=== PATIENT | male | born 1970 | race Hispanic/Latino ===

== ENCOUNTER 2022-01-19 09:04 | Emergency (ER) | payer OTHER ==
[~2022-01-19] VITALS: Ht 180.3 cm; Wt 89.8 kg
[2022-01-19 09:06] VITALS: BP 124/85
[2022-01-19 10:14] LABS: BASOPHILS % (AUTO) 0.2 % (0.0-5.0); EOSINOPHILS % (AUTO) 1.6 % (0.0-8.0); LYMPHOCYTES % (AUTO) 41.3 % (21.0-51.0); MEAN CORPUSCULAR HEMOGLOBIN 29.8 pg (27.0-33.0); MEAN CORPUSCULAR HGB CONC 34.7 g/dL (32.0-36.0); MEAN CORPUSCULAR VOLUME 85.9 fL (79-99); MONOCYTES % (AUTO) 10.6 % (3.0-13.0); PLATELET COUNT (AUTO) 181 K/uL (130-400); RED BLOOD CELL COUNT(AUTO) 5.24 MIL/uL (4.50-6.20); RED CELL DISTRIBUTION WIDTH 12.7 % (11.0-15.5); WHITE BLOOD COUNT (AUTO) 6.1 K/uL (4.8-10.8)
[2022-01-19 10:27] LABS: POTASSIUM 3.8 mmol/L (3.5-5.1)
[2022-01-19 10:31] LABS: ALBUMIN 3.8 g/dL (3.5-5.0); TOTAL PROTEIN, SERUM 7.7 g/dL (6.0-8.3)
[2022-01-19] MEDS ORDERED: TETANUS/DIPHTHERIA TOXOID [ADULT] 0.5 ML VIAL IM SCH (11:30)
== END 2022-01-19 11:57 | disposition home or self-care (01) ==
LOC: EDH 09:04
DX: T63.2X1A Toxic effect of venom of scorpion, accidental (unintentional), initial encounter (principal); Z90.49 Acquired absence of other specified parts of digestive tract; Y92.89 Other specified places as the place of occurrence of the external cause
CPT/HCPCS: 36415; 80053; 85025; 90471; 90714

== ENCOUNTER 2022-11-20 11:58 | Observation (INO) | payer OTHER ==
[~2022-11-20] VITALS: Ht 180.3 cm; Wt 88.9 kg
[2022-11-20 13:22] LABS: HEMATOCRIT 44.8 % (42-54); MEAN CORPUSCULAR HEMOGLOBIN 29.7 pg (27.0-33.0); MEAN CORPUSCULAR HGB CONC 33.9 g/dL (32.0-36.0); MEAN CORPUSCULAR VOLUME 87.7 fL (79-99); RED BLOOD CELL COUNT(AUTO) 5.11 MIL/uL (4.50-6.20); RED CELL DISTRIBUTION WIDTH 12.9 % (11.0-15.5); WHITE BLOOD COUNT (AUTO) 10.1 K/uL (4.8-10.8)
[2022-11-20 13:32] LABS: CREATININE 1.1 mg/dL (0.5-1.5); POTASSIUM 4.3 mmol/L (3.5-5.1)
[2022-11-20 13:34] LABS: APPEARANCE,URINE CLOUDY (CLEAR); BILIRUBIN,URINE NEGATIVE (NEGATIVE); COLOR,URINE YELLOW (YELLOW); GLUCOSE, URINE (UA) 150 mg/dL (NEGATIVE); KETONES,URINE NEGATIVE (NEGATIVE); LEUKOCYTE ESTERASE ,URINE NEGATIVE Leu/uL (NEGATIVE); NITRATE,URINE NEGATIVE (NEGATIVE); OCCULT BLOOD,URINE NEGATIVE (NEGATIVE); PH,URINE 7.5 (5.0-8.0); PROTEIN,URINE 10 mg/dL (NEGATIVE)
[2022-11-20 13:36] LABS: ALBUMIN 3.6 g/dL (3.5-5.0); TOTAL PROTEIN, SERUM 8.1 g/dL (6.0-8.3)
[2022-11-20 13:38] LABS: BACTERIA,URINE RARE /HPF (None Seen); MUCUS,URINE RARE LPF (None Seen); RBC,URINE 0-1 /HPF (0-1); WBC,URINE 0-1 /HPF (0-1)
[2022-11-20] MEDS ORDERED: ACETAMINOPHEN 500 MG TABLET PO ONE (15:00)
[2022-11-20 15:30] VITALS: TEMP 99
[2022-11-20] MEDS ORDERED: IOHEXOL-350 75 ML VIAL IV ONE (17:00)
[2022-11-20] MEDS ORDERED: POTASSIUM CHLORIDE 20MEQ/100ML 100 ML IV PRN (18:30)
[2022-11-20] MEDS ORDERED: HYDROMORPHONE 1 MG INJ IV PRN (18:30)
[2022-11-20] MEDS ORDERED: KCL 20 MEQ ERTAB PO PRN (18:30)
[2022-11-20] MEDS ORDERED: POTASSIUM CHLORIDE 10% ELIXIR 20 MEQ/15 ML UDCUP PO PRN (18:30)
[2022-11-20] MEDS ORDERED: ONDANSETRON 4MG INJ IV PRN (18:30)
[2022-11-20] MEDS ORDERED: ACETAMINOPHEN 325 MG TAB PO PRN ×2 (18:30)
[2022-11-20] MEDS ORDERED: MAGNESIUM 2GM PREMIX 50ML 50 ML IV PRN (18:30)
[2022-11-20] MEDS ORDERED: HYDROCODONE/ACETAMINOPHEN 5/325 MG TAB PO PRN (18:30)
[2022-11-20] MEDS ORDERED: LACTATED RINGERS 1000ML 1,000 ML IV SCH (18:30)
[2022-11-20] MEDS ORDERED: FAMOTIDINE 20MG TAB PO SCH (21:00)
[2022-11-20 21:15] VITALS: BP 139/78; PULSE 82; RESP 17; O2SAT 100
[2022-11-21] MEDS ORDERED: ENOXAPARIN SODIUM 40 MG/0.4 ML SYRINGE SQ SCH (09:00)
== END 2022-11-20 21:15 | disposition home or self-care (01) ==
LOC: EDH 11:58 → EDHIP 18:17
PROVIDERS: ADMIT Internal Medicine; ATTEND Internal Medicine
DX: R50.9 Fever, unspecified (principal); Z20.822 Contact with and (suspected) exposure to COVID-19; R51.9 Headache, unspecified; M79.10 Myalgia, unspecified site; Z90.49 Acquired absence of other specified parts of digestive tract; Z51.5 Encounter for palliative care
CPT/HCPCS: 96360; 96361; 99285; 80053; 85027; 87040 ×2; 87804 ×2; 83605; 81001; 36415; 87635; 71045; 74177; G0378 ×3; C9803; Q9967

== ENCOUNTER 2022-11-21 15:12 | Inpatient (IN) | payer OTHER ==
[~2022-11-21] VITALS: Ht 180.3 cm; Wt 91.9 kg
[2022-11-21 15:42] LABS: APPEARANCE,URINE CLEAR (CLEAR); BILIRUBIN,URINE 0.5 mg/dL (NEGATIVE); COLOR,URINE YELLOW (YELLOW); GLUCOSE, URINE (UA) 30 mg/dL (NEGATIVE); KETONES,URINE NEGATIVE (NEGATIVE); LEUKOCYTE ESTERASE ,URINE 25 Leu/uL (NEGATIVE); NITRATE,URINE NEGATIVE (NEGATIVE); OCCULT BLOOD,URINE NEGATIVE (NEGATIVE); PROTEIN,URINE 50 mg/dL (NEGATIVE)
[2022-11-21 15:44] LABS: BACTERIA,URINE FEW /HPF (None Seen); MUCUS,URINE MOD LPF (None Seen); RBC,URINE 0-1 /HPF (0-1); SQUAMOUS EPITHELIAL CELL,UR RARE /HPF (0-2)
[2022-11-21] MEDS ORDERED: CEFTRIAXONE 1G VIAL IVPB ONE (16:30)
[2022-11-21] MEDS ORDERED: KETOROLAC 15MG/ML VIAL (15MG/ML) IV ONE (16:30)
[2022-11-21] MEDS ORDERED: 0.9%NACL 1000ML 1,000 ML IV ONE (16:30)
[2022-11-21 17:02] LABS: BASOPHILS % (AUTO) 0.2 % (0.0-5.0); EOSINOPHILS % (AUTO) 0.3 % (0.0-8.0); HEMATOCRIT 42.2 % (42-54); LYMPHOCYTES % (AUTO) 11.5 % (21.0-51.0); MEAN CORPUSCULAR HEMOGLOBIN 29.9 pg (27.0-33.0); MEAN CORPUSCULAR HGB CONC 34.1 g/dL (32.0-36.0); MEAN CORPUSCULAR VOLUME 87.6 fL (79-99); MONOCYTES % (AUTO) 12.5 % (3.0-13.0); NEUTROPHILS % (AUTO) 75.2 % (40.0-77.0); PLATELET COUNT (AUTO) 177 K/uL (130-400); RED BLOOD CELL COUNT(AUTO) 4.82 MIL/uL (4.50-6.20); RED CELL DISTRIBUTION WIDTH 12.7 % (11.0-15.5)
[2022-11-21 17:18] LABS: CREATININE 1.1 mg/dL (0.5-1.5); POTASSIUM 4.3 mmol/L (3.5-5.1)
[2022-11-21 17:24] LABS: ALBUMIN 3.4 g/dL (3.5-5.0); TOTAL PROTEIN, SERUM 8.2 g/dL (6.0-8.3)
[2022-11-21] MEDS ORDERED: ACETAMINOPHEN 325 MG TAB PO PRN (19:30)
[2022-11-21] MEDS ORDERED: ONDANSETRON 4MG INJ IV PRN (19:30)
[2022-11-21] MEDS ORDERED: MORPHINE 4 MG SYG IV PRN (19:30)
[2022-11-21] MEDS: FAMOTIDINE 20MG TAB PO SCH (23:00)
[2022-11-21] MEDS: LACTATED RINGERS 1000ML 1,000 ML IV SCH (23:19)
[2022-11-22] VITALS (8 sets, daily range): BP systolic 117–138; BP diastolic 70–80; PULSE 71–96; RESP 16–20; TEMP 100.4; O2SAT 93–96
[2022-11-22 06:01] LABS: BASOPHILS % (AUTO) 0.1 % (0.0-5.0); EOSINOPHILS % (AUTO) 0.9 % (0.0-8.0); HEMATOCRIT 38.8 % (42-54); MEAN CORPUSCULAR HEMOGLOBIN 29.9 pg (27.0-33.0); MEAN CORPUSCULAR HGB CONC 34.5 g/dL (32.0-36.0); MEAN CORPUSCULAR VOLUME 86.6 fL (79-99); MONOCYTES % (AUTO) 14.5 % (3.0-13.0); NEUTROPHILS % (AUTO) 70.3 % (40.0-77.0); PLATELET COUNT (AUTO) 171 K/uL (130-400); RED BLOOD CELL COUNT(AUTO) 4.48 MIL/uL (4.50-6.20); RED CELL DISTRIBUTION WIDTH 12.9 % (11.0-15.5); WHITE BLOOD COUNT (AUTO) 8.7 K/uL (4.8-10.8)
[2022-11-22 06:58] LABS: MAGNESIUM 1.8 mg/dL (1.80-2.40); PHOSPHORUS 2.7 mg/dL (2.5-4.9); POTASSIUM 3.8 mmol/L (3.5-5.1)
[2022-11-22] MEDS: FAMOTIDINE 20MG TAB PO SCH ×2 (09:01→20:52)
[2022-11-22] MEDS: ENOXAPARIN SODIUM 40 MG/0.4 ML SYRINGE SQ SCH (09:01)
[2022-11-22] MEDS: MORPHINE 2 MG SYG IV PRN (10:50)
[2022-11-22] MEDS: ACETAMINOPHEN 325 MG TAB PO PRN ×2 (11:59→18:38)
[2022-11-22] MEDS: LACTATED RINGERS 1000ML 1,000 ML IV SCH ×2 (12:35→20:52)
[2022-11-22] MEDS: DOXYCYCLINE 100MG+NS 250ML IV SCH (13:18)
[2022-11-22] MEDS ORDERED: LACTULOSE 20 GM/30 ML UDCUP PO PRN (19:00)
[2022-11-23] VITALS (7 sets, daily range): BP systolic 107–130; BP diastolic 65–80; PULSE 76–89; RESP 16–20; O2SAT 95–98
[2022-11-23] MEDS: DOXYCYCLINE 100MG+NS 250ML IV SCH ×2 (00:57→12:29)
[2022-11-23] MEDS: MORPHINE 2 MG SYG IV PRN (05:49)
[2022-11-23 06:07] LABS: BASOPHILS % (AUTO) 0.1 % (0.0-5.0); EOSINOPHILS % (AUTO) 1.1 % (0.0-8.0); LYMPHOCYTES % (AUTO) 15.9 % (21.0-51.0); MEAN CORPUSCULAR HEMOGLOBIN 29.7 pg (27.0-33.0); MEAN CORPUSCULAR HGB CONC 33.5 g/dL (32.0-36.0); MEAN CORPUSCULAR VOLUME 88.7 fL (79-99); MONOCYTES % (AUTO) 13.4 % (3.0-13.0); PLATELET COUNT (AUTO) 156 K/uL (130-400); RED BLOOD CELL COUNT(AUTO) 4.17 MIL/uL (4.50-6.20); RED CELL DISTRIBUTION WIDTH 12.4 % (11.0-15.5); WHITE BLOOD COUNT (AUTO) 8.7 K/uL (4.8-10.8)
[2022-11-23 06:46] LABS: ALBUMIN 2.7 g/dL (3.5-5.0); BILIRUBIN,DIRECT 0.2 mg/dL (0.0-0.3); POTASSIUM 3.7 mmol/L (3.5-5.1); TOTAL PROTEIN, SERUM 6.8 g/dL (6.0-8.3)
[2022-11-23] MEDS: FAMOTIDINE 20MG TAB PO SCH ×2 (08:27→20:38)
[2022-11-23] MEDS: ENOXAPARIN SODIUM 40 MG/0.4 ML SYRINGE SQ SCH (08:27)
[2022-11-23] MEDS: LACTATED RINGERS 1000ML 1,000 ML IV SCH (20:38)
[2022-11-24 00:05] VITALS: BP 107/62; PULSE 70; RESP 18
[2022-11-24] MEDS: DOXYCYCLINE 100MG+NS 250ML IV SCH ×2 (01:00→12:17)
[2022-11-24 03:35] VITALS: BP 118/69; PULSE 74; RESP 16
[2022-11-24 05:46] LABS: BASOPHILS % (AUTO) 0.2 % (0.0-5.0); EOSINOPHILS % (AUTO) 2.2 % (0.0-8.0); HEMATOCRIT 36.2 % (42-54); LYMPHOCYTES % (AUTO) 24.4 % (21.0-51.0); MEAN CORPUSCULAR HEMOGLOBIN 29.9 pg (27.0-33.0); MEAN CORPUSCULAR HGB CONC 34.3 g/dL (32.0-36.0); MEAN CORPUSCULAR VOLUME 87.2 fL (79-99); MONOCYTES % (AUTO) 14.9 % (3.0-13.0); NEUTROPHILS % (AUTO) 57.8 % (40.0-77.0); PLATELET COUNT (AUTO) 202 K/uL (130-400); RED BLOOD CELL COUNT(AUTO) 4.15 MIL/uL (4.50-6.20); RED CELL DISTRIBUTION WIDTH 12.5 % (11.0-15.5); WHITE BLOOD COUNT (AUTO) 8.2 K/uL (4.8-10.8)
[2022-11-24 06:05] LABS: ALBUMIN 2.7 g/dL (3.5-5.0); BILIRUBIN,DIRECT 0.2 mg/dL (0.0-0.3); POTASSIUM 4.3 mmol/L (3.5-5.1)
[2022-11-24 08:00] VITALS: BP 113/68; PULSE 73; RESP 20
[2022-11-24] MEDS: FAMOTIDINE 20MG TAB PO SCH (08:18)
[2022-11-24] MEDS: ENOXAPARIN SODIUM 40 MG/0.4 ML SYRINGE SQ SCH (08:18)
[2022-11-24] MEDS: LACTATED RINGERS 1000ML 1,000 ML IV SCH (08:20)
[2022-11-24 08:30] VITALS: O2SAT 96
[2022-11-24 12:00] VITALS: BP 114/75; PULSE 71; RESP 18
[2022-11-26 13:11] LABS: B.BURGOR (LYME) IGG WB INTERP Negative (.); LYME IGM-WB INTERP Negative (.); LYME IGM-WB P23 AB Absent (.); LYME IGM-WB P39 AB Absent (.); LYME IGM-WB P41 AB Absent (.)
[2022-11-26 19:09] LABS: TREPONEMA PALLIDUM AB -TPPA Equivocal (Non Reactive)
[2022-11-27 16:10] LABS: TYPHUS FEVER IGG <1:64 (Neg:<1:64); TYPHUS FEVER IGM <1:64 (Neg:<1:64)
== END 2022-11-24 16:00 | disposition home or self-care (01) | DRG 868 ==
LOC: EDH 15:12 → EDHIP 19:13 → 3CH 11-22 09:40
PROVIDERS: ADMIT Internal Medicine; ATTEND Internal Medicine
DX: A75.9 Typhus fever, unspecified (principal); N39.0 Urinary tract infection, site not specified; Z20.822 Contact with and (suspected) exposure to COVID-19; M79.10 Myalgia, unspecified site; E66.09 Other obesity due to excess calories; Z68.28 Body mass index [BMI] 28.0-28.9, adult
CPT/HCPCS: 36415; 70450; 71045; 74177; 76870; 80048; 80053; 80076; 81001; 83605; 83735; 84100; 84145; 85025; 85027; 85651; 86038; 86140; 86308; 86431; 86695; 86696; 86701; 86757; 86780; 87040; 87071; 87088; 87390; 87486; 87635; 87797; 87804; 87880; 96360; 96361; C9803; G0378; J0696; J1650; J1885; J2270; J2405; J3490; J7030; J7120; Q9967

== ENCOUNTER 2022-12-19 19:53 | Emergency (ER) | payer OTHER ==
[~2022-12-19] VITALS: Ht 180.3 cm; Wt 88.9 kg
[2022-12-19 20:21] VITALS: O2SAT 98
[2022-12-19 20:24] VITALS: BP 143/82; PULSE 76; RESP 18
[2022-12-19 22:32] LABS: BASOPHILS # (AUTO) 0.02 K/uL (0.00-0.20); BASOPHILS % (AUTO) 0.3 % (0.0-5.0); EOSINOPHILS # (AUTO) 0.13 K/uL (0.00-0.70); EOSINOPHILS % (AUTO) 1.9 % (0.0-8.0); HEMATOCRIT 44.2 % (42-54); IMMATURE GRANULOCYTE ABSOLUTE 0.02 K/uL (0-1); MEAN CORPUSCULAR HGB CONC 34.2 g/dL (32.0-36.0); MEAN CORPUSCULAR VOLUME 87.7 fL (79-99); MONOCYTES # (AUTO) 0.8 K/uL (0.1-1.0); MONOCYTES % (AUTO) 11.4 % (3.0-13.0); NEUTROPHILS # (AUTO) 2.8 K/uL (1.8-7.7); NEUTROPHILS % (AUTO) 42.1 % (40.0-77.0); PLATELET COUNT (AUTO) 147 K/uL (130-400); RED BLOOD CELL COUNT(AUTO) 5.04 MIL/uL (4.50-6.20); RED CELL DISTRIBUTION WIDTH 13.2 % (11.0-15.5); WHITE BLOOD COUNT (AUTO) 6.7 K/uL (4.8-10.8)
[2022-12-19 22:45] LABS: INR 0.94 (0.85-1.15); PROTHROMBIN TIME 10.9 SEC (9.6-11.6)
[2022-12-19 22:45] LABS: APPEARANCE,URINE CLOUDY (CLEAR); BILIRUBIN,URINE NEGATIVE (NEGATIVE); COLOR,URINE LIGHT-YELLOW (YELLOW); GLUCOSE, URINE (UA) NEGATIVE (NEGATIVE); KETONES,URINE NEGATIVE (NEGATIVE); LEUKOCYTE ESTERASE ,URINE NEGATIVE Leu/uL (NEGATIVE); NITRATE,URINE NEGATIVE (NEGATIVE); OCCULT BLOOD,URINE NEGATIVE (NEGATIVE); PROTEIN,URINE NEGATIVE (NEGATIVE); UROBILINOGEN,URINE 0.2 mg/dL (0.2-1.0)
[2022-12-19 22:46] LABS: CREATININE 1.1 mg/dL (0.5-1.5); PARTIAL THROMBOPLASTIN TIME 26.9 SEC (26.3-35.5); POTASSIUM 3.7 mmol/L (3.5-5.1)
[2022-12-19 22:46] LABS: ADD UA MICROSCOPIC YES
[2022-12-19 22:50] LABS: BACTERIA,URINE RARE /HPF (None Seen); MUCUS,URINE RARE LPF (None Seen)
[2022-12-19 22:51] LABS: ALBUMIN 3.7 g/dL (3.5-5.0); BILIRUBIN,TOTAL 0.5 mg/dL (0.2-1.0); TOTAL PROTEIN, SERUM 7.4 g/dL (6.0-8.3)
[2022-12-19] MEDS ORDERED: IBUP-2070 PO (23:29)
== END 2022-12-20 00:12 | disposition home or self-care (01) ==
LOC: EDH 19:53
DX: R59.9 Enlarged lymph nodes, unspecified (principal); Z90.49 Acquired absence of other specified parts of digestive tract
CPT/HCPCS: 36415; 80053; 81001; 82550; 83605; 84484; 85025; 85610; 85730; 87040; 87088; 93005